=== PATIENT | female | born 1995 | race Caucasian/White ===

== ENCOUNTER → 2018-08-02 | Outpatient (CLI) | payer OTHER ==
--- NOTE | 2018-08-02 18:32 | Diagnostic Imaging Report ---
PROCEDURE: US OB SINGLE FETUS <14 WKS. TECHNIQUE: Multiple real-time grayscale images were obtained over the gravid uterus in various projections. INDICATION: age determination. dates. FINDINGS: Within the uterus is a gestational sac which contains a single embryo which is estimated at 10 weeks 0 days based on today's crown-rump length measurement. cardiac motion is appropriate at 158 beats per minute. Amniotic fluid volume appears appropriate. Yolk sac morphology is unremarkable. The maternal left ovary is unremarkable. The right is not evident but there are no findings of pelvic free fluid or evident adnexal mass. IMPRESSION: 1. Single live intrauterine gestation at 10 weeks 0 days gestational age based on today's crown-rump length measurements. There is appropriate cardiac motion and amniotic fluid volume. Estimated gestational age correlates to an estimated date of delivery of February 28, 2019. Dictated by: Dictated on workstation # [id number]
== END ==
LOC: RAD 14:27
PROVIDERS: ATTEND Family Medicine
DX: Z34.91 Encounter for supervision of normal pregnancy, unspecified, first trimester (principal); Z3A.10 10 weeks gestation of pregnancy
CPT/HCPCS: 76801

== ENCOUNTER 2018-08-30 16:52 | Emergency (ER) | payer OTHER ==
[~2018-08-30] VITALS: Ht 165.1 cm; Wt 63.5 kg
[2018-08-30 17:53] LABS: BASOPHILS % (AUTO) 0 % (0-10); EOSINOPHILS # (AUTO) 0.1 10^3/uL (0.0-0.3); EOSINOPHILS % (AUTO) 1 % (0-10); HEMATOCRIT 36 % (35-52); HEMOGLOBIN 12.5 G/DL (11.5-16.0); LYMPHOCYTES # (AUTO) 1.2 X 10^3 (1.0-4.0); LYMPHOCYTES % (AUTO) 13 % (12-44); MEAN CORPUSCULAR HEMOGLOBIN 30 PG (25-34); MEAN CORPUSCULAR HGB CONC 35 G/DL (32-36); MEAN CORPUSCULAR VOLUME 87 FL (80-99); MEAN PLATELET VOLUME 10.5 FL (7.4-10.4); MONOCYTES # (AUTO) 0.7 X 10^3 (0.0-1.0); MONOCYTES % (AUTO) 7 % (0-12); NEUTROPHILS # (AUTO) 7.2 X 10^3 (1.8-7.8); NEUTROPHILS % (AUTO) 79 % (42-75); PLATELET COUNT 186 10^3/uL (130-400); RED BLOOD COUNT 4.14 10^6/uL (4.35-5.85); RED CELL DISTRIBUTION WIDTH 13.7 % (10.0-14.5); WHITE BLOOD COUNT 9.1 10^3/uL (4.3-11.0)
[2018-08-30 17:57] LABS: BILIRUBIN,URINE NEGATIVE (NEGATIVE); CLARITY,URINE CLEAR; COLOR,URINE YELLOW; GLUCOSE, URINE (UA) NEGATIVE (NEGATIVE); KETONES,URINE NEGATIVE (NEGATIVE); LEUKOCYTE ESTERASE ,URINE 1+ (NEGATIVE); NITRITE,URINE NEGATIVE (NEGATIVE); PH,URINE 7 (5-9); PROTEIN,URINE NEGATIVE (NEGATIVE); UROBILINOGEN,URINE 1 MG/DL (NORMAL)
[2018-08-30 18:11] LABS: RBC,URINE 0-2 /HPF
[2018-08-30 18:12] LABS: ALANINE AMINOTRANSFERASE 12 U/L (0-55); ALBUMIN 3.7 GM/DL (3.2-4.5); ALKALINE PHOSPHATASE 81 U/L (40-136); BILIRUBIN,TOTAL 0.4 MG/DL (0.1-1.0); BUN/CREATININE RATIO 12; CALCIUM 8.8 MG/DL (8.5-10.1); CARBON DIOXIDE 21 MMOL/L (21-32); CHLORIDE 106 MMOL/L (98-107); CREATININE SERUM 0.66 MG/DL (0.60-1.30); GFR ESTIMATED > 60; GLUCOSE 86 MG/DL (70-105); POTASSIUM 3.6 MMOL/L (3.6-5.0); SODIUM 136 MMOL/L (135-145); TOTAL PROTEIN 6.6 GM/DL (6.4-8.2)
[2018-08-30] MEDS ORDERED: NS IV 1000 ML 1,000 ML IV SCH (18:15)
--- NOTE | 2018-08-30 18:18 | ED General ---
General Chief Complaint: General Problems/Pain Stated Complaint: CRAMPING,DIZZY,14 WKS Nursing Triage Note: PATIENT STATES THAT SHE HAS HAD CERDA, NAUSEA, AND LOWER ABD CRAMPING THAT STARTED TODAY. Nursing Sepsis Screen: No Definite Risk Source of Information: Patient Exam Limitations: No Limitations History of Present Illness Date Seen by Provider: Aug 30, 2018 Time Seen by Provider: 18:16 Initial Comments To ER with suprapubic and left-sided abdominal cramping, nausea, dizziness that began today around 3 PM. She is 14 weeks gestation and is concerned about the well-being of her fetus. Denies any vaginal bleeding. No bowel changes. She's had nausea but no vomiting. She has had an ultrasound at 10 weeks of gestation confirming an intrauterine . This was done here. Timing/Duration: 1-3 Hours Severity: Moderate Allergies and Home Medications Allergies Coded Allergies: No Known Drug Allergies (Unverified , 08/30/18) Patient Home Medication List Home Medication List Reviewed: Yes Review of Systems Review of Systems Constitutional: see HPI EENTM: see HPI Respiratory: no symptoms reported Cardiovascular: no symptoms reported Gastrointestinal: abdominal pain, nausea Genitourinary: no symptoms reported Musculoskeletal: see HPI Skin: no symptoms reported Psychiatric/Neurological: No Symptoms Reported Hematologic/Lymphatic: No Symptoms Reported Immunological/Allergic: no symptoms reported Past Cnaizjp-Uemulw-Irmejk Hx Patient Social History Alcohol Use: Denies Use Recreational Drug Use: No Smoking Status: Never a Smoker 2nd Hand Smoke Exposure: No Recent Foreign Travel: No Contact w/Someone Who Travel: No Recent Infectious Disease Expo: No Recent Hopitalizations: No Seasonal Allergies Seasonal Allergies: No Past Medical History Surgeries: No Respiratory: No Cardiac: No Neurological: No Genitourinary: No Gastrointestinal: No Musculoskeletal: Yes Scoliosis Endocrine: No HEENT: No Cancer: No Integumentary: No Physical Exam Vital Signs Vital Signs - First Documented 08/30/18 17:20 Temp 97.0 Pulse 67 Resp 18 B/P (MAP) 97/57 (70) Pulse Ox 100 Capillary Refill : Less Than 3 Seconds Height, Weight, BMI Height: 5'5.00" Weight: 140lbs. 0oz. [id number]; BMI Method:Stated General Appearance: No Apparent Distress, WD/WN Eyes: Bilateral Eye Normal Inspection, Bilateral Eye PERRL, Bilateral Eye EOMI HEENT: PERRL/EOMI, TMs Normal Respiratory: Lungs Clear, Normal Breath Sounds, No Accessory Muscle Use, No Respiratory Distress Cardiovascular: Regular Rate, Rhythm, Normal Peripheral Pulses Gastrointestinal: Normal Bowel Sounds, Soft, Other (Minimal tenderness left lower abdomen) Extremity: Normal Capillary Refill, Normal Inspection Neurologic/Psychiatric: Alert, Oriented x3, No Motor/Sensory Deficits Skin: Normal Color, Warm/Dry Progress/Results/Core Measures Suspected Sepsis Recent Fever Within 48 Hours: No Infection Criteria Present: None New/Unexplained Altered Menta: No Sepsis Screen: No Definite Risk SIRS Temperature:97.0 Pulse: 67 Respiratory Rate: 18 Laboratory Tests 08/30/18 17:47: White Blood Count 9.1 Blood Pressure 97 /57 Mean: 70 Laboratory Tests 08/30/18 17:47: Creatinine 0.66, Platelet Count 186, Total Bilirubin 0.4 Results/Orders Lab Results Laboratory Tests Test 08/30/18 17:42 08/30/18 17:47 Range/Units Urine Color YELLOW Urine Clarity CLEAR Urine pH 7 5-9 Urine Specific [place] 1.015 L 1.016-1.022 Urine Protein NEGATIVE NEGATIVE Urine Glucose (UA) NEGATIVE NEGATIVE Urine Ketones NEGATIVE NEGATIVE Urine Nitrite NEGATIVE NEGATIVE Urine Bilirubin NEGATIVE NEGATIVE Urine Urobilinogen 1 NORMAL MG/DL Urine Leukocyte Esterase 1+ H NEGATIVE Urine RBC (Auto) 1+ H NEGATIVE Urine RBC 0-2 /HPF Urine WBC 2-5 /HPF Urine Squamous Epithelial Cells 5-10 /HPF Urine Crystals NONE /LPF Urine Bacteria NONE /HPF Urine Casts NONE /LPF Urine Mucus SMALL H /LPF Urine Culture Indicated NO White Blood Count 9.1 4.3-11.0 10^3/uL Red Blood Count 4.14 L 4.35-5.85 10^6/uL Hemoglobin 12.5 11.5-16.0 G/DL Hematocrit 36 35-52 % Mean Corpuscular Volume 87 80-99 FL Mean Corpuscular Hemoglobin 30 25-34 PG Mean Corpuscular Hemoglobin Concent 35 32-36 G/DL Red Cell Distribution Width 13.7 10.0-14.5 % Platelet Count 186 130-400 10^3/uL Mean Platelet Volume 10.5 H 7.4-10.4 FL Neutrophils (%) (Auto) 79 H 42-75 % Lymphocytes (%) (Auto) 13 12-44 % Monocytes (%) (Auto) 7 0-12 % Eosinophils (%) (Auto) 1 0-10 % Basophils (%) (Auto) 0 0-10 % Neutrophils # (Auto) 7.2 1.8-7.8 X 10^3 Lymphocytes # (Auto) 1.2 1.0-4.0 X 10^3 Monocytes # (Auto) 0.7 0.0-1.0 X 10^3 Eosinophils # (Auto) 0.1 0.0-0.3 10^3/uL Basophils # (Auto) 0.0 0.0-0.1 10^3/uL Sodium Level 136 135-145 MMOL/L Potassium Level 3.6 3.6-5.0 MMOL/L Chloride Level 106 98-107 MMOL/L Carbon Dioxide Level 21 21-32 MMOL/L Anion Gap 9 5-14 MMOL/L Blood Urea Nitrogen 8 7-18 MG/DL Creatinine 0.66 0.60-1.30 MG/DL Estimat Glomerular Filtration Rate > 60 BUN/Creatinine Ratio 12 Glucose Level 86 70-105 MG/DL Calcium Level 8.8 8.5-10.1 MG/DL Corrected Calcium 9.0 8.5-10.1 MG/DL Total Bilirubin 0.4 0.1-1.0 MG/DL Aspartate Amino Transf (AST/SGOT) 13 5-34 U/L Alanine Aminotransferase (ALT/SGPT) 12 0-55 U/L Alkaline Phosphatase 81 40-136 U/L Total Protein 6.6 6.4-8.2 GM/DL Albumin 3.7 3.2-4.5 GM/DL My Orders Orders - OZZIE PERES APRN Cbc With Automated Diff (08/30/18 17:28) Comprehensive Metabolic Panel (08/30/18 17:28) Ua Culture If Indicated (08/30/18 17:28) Iv [place]-Insert (Order) (08/30/18 17:28) Ns Iv 1000 Ml (Sodium Chloride 0.9%) (08/30/18 18:15) Heart Tones (08/30/18 18:18) Vital Signs/I&O 08/30/18 17:20 Temp 97.0 Pulse 67 Resp 18 B/P (MAP) 97/57 (70) Pulse Ox 100 Capillary Refill : Less Than 3 Seconds Blood Pressure Mean: 70 Departure Impression Primary Impression: Abdominal cramping affecting Disposition: 01 HOME, SELF-CARE Condition: Stable Departure-Patient Inst. Decision time for Depature: 18:54 Referrals: ADRIANNA CUELLO MD (PCP/Family) Primary Care Physician Patient Instructions: Activity During , - The Fourth Month Add. Discharge Instructions: 1. Return to ER for any concerns 2. Follow up with your doctor next week for recheck All discharge instructions reviewed with patient and/or family. Voiced understanding. OZZIE PERES SENIOR DATA WAREHOUSE ARCHITECT Aug 30, 2018 18:18
[2018-08-30 19:12] VITALS: BP 97/57
== END 2018-08-30 19:12 | disposition home or self-care (01) ==
LOC: EDUNIT# 16:52 → ER 16:54
DX: O26.892 Other specified pregnancy related conditions, second trimester (principal); R10.32 Left lower quadrant pain; Z3A.14 14 weeks gestation of pregnancy
CPT/HCPCS: 36415; 80053; 81000; 85025; 96360

== ENCOUNTER 2018-09-03 07:23 | Emergency (ER) | payer OTHER ==
[~2018-09-03] VITALS: Ht 165.1 cm; Wt 64.4 kg
[2018-09-03] MEDS ORDERED: LACTATED RINGERS 1,000 ML IV ONE (07:35)
--- NOTE | 2018-09-03 07:39 | ED GI ---
General Chief Complaint: Abdominal/GI Problems Stated Complaint: POSS DEHYDRATED,14 WEEKS Source of Information: Patient Exam Limitations: No Limitations History of Present Illness Date Seen by Provider: Sep 03, 2018 Time Seen by Provider: 07:27 Initial Comments Patient presents to ER by private conveyance with chief complaint of nausea vomiting and feeling dehydrated since 9:00 last night. Her rmqdey-rz-ysm's been sick with something similar although not as bad. She says she's been trying to sip water and using the Phenergan provided by Dr. Cuello but she just vomits it right back up. She is having mild abdominal discomfort after the vomiting. No fevers but she's had some chills. No rash. No painful urination. Allergies and Home Medications Allergies Coded Allergies: No Known Drug Allergies (Unverified , 08/30/18) Home Medications Ondansetron 4 Mg Tab.rapdis, 4 MG PO Q6H PRN for NAUSEA/VOMITING-2ND LINE Prescribed by: JESSICA CLARK on 09/03/18 [id number] Patient Home Medication List Home Medication List Reviewed: Yes Review of Systems Review of Systems Constitutional: No chills, No diaphoresis EENTM: No Blurred Vision, No Double Vision Respiratory: Denies Cough, Denies Shortness of Air Cardiovascular: Denies Chest Pain, Denies Edema Gastrointestinal: See HPI; Denies Abdomen Distended; Abdominal Pain; Denies Diarrhea; Nausea, Poor Fluid Intake, Vomiting Genitourinary: Denies Discharge, Denies Drainage Past Mqpqcki-Bpbgsv-Ajsmyf Hx Patient Social History Alcohol Use: Denies Use 2nd Hand Smoke Exposure: No Recent Foreign Travel: No Contact w/Someone Who Travel: No Recent Hopitalizations: No Seasonal Allergies Seasonal Allergies: No Past Medical History Surgeries: No Respiratory: No Cardiac: No Neurological: No Genitourinary: No Gastrointestinal: No Musculoskeletal: Yes Scoliosis Endocrine: No HEENT: No Cancer: No Integumentary: No Physical Exam Vital Signs Vital Signs - First Documented 09/03/18 07:30 Temp 98.0 Pulse 85 Resp 16 B/P (MAP) 103/67 (79) Pulse Ox 98 O2 Delivery Room Air Capillary Refill : Height/Weight/BMI Height: 5'5.00" Weight: 140lbs. 0oz. 63.501991pd; BMI Method:Stated General Appearance: WD/WN, no apparent distress HEENT: PERRL/EOMI, pharynx normal Neck: non-tender, full range of motion, normal inspection Respiratory: no respiratory distress, no accessory muscle use Cardiovascular: normal peripheral pulses, regular rate, rhythm Gastrointestinal: normal bowel sounds, soft, tenderness (mild, diffuse mostly epigastric) Neurologic/Psychiatric: alert, oriented x 3 Skin: normal color, warm/dry Progress/Results/Core Measures Results/Orders My Orders Orders - JESSICA CLARK Saline Lock/Iv-Start (09/03/18 07:35) Lactated Ringers (Lr 1000 Ml Iv Solution (09/03/18 07:35) Ondansetron Injection (Zofran Injectio (09/03/18 07:45) Medications Given in ED Current Medications Medications Dose Ordered Sig/Brina Route Start Time Stop Time Status Last Admin Dose Admin Lactated Ringer's 1,000 ml @ 0 mls/hr Q0M ONCE IV 09/03/18 07:35 09/03/18 07:36 DC 09/03/18 07:49 1,000 MLS/HR Ondansetron HCl 4 mg ONCE ONCE IVP 09/03/18 07:45 09/03/18 07:46 DC 09/03/18 07:49 4 MG Vital Signs/I&O 09/03/18 07:30 Temp 98.0 Pulse 85 Resp 16 B/P (MAP) 103/67 (79) Pulse Ox 98 O2 Delivery Room Air Progress Progress Note #1: Time: 07:38 Progress Note Aseptic vital signs mildly dry in appearance. Most likely viral gastroenteritis and will respond some Zofran and fluids. Progress Note #2: Time: 08:22 Progress Note Patient's feeling better nausea is gone and the heart tones are 160. Departure Impression Primary Impression: Gastroenteritis Additional Impression: and not yet delivered in second trimester Disposition: 01 HOME, SELF-CARE Condition: Improved Departure-Patient Inst. Decision time for Depature: 08:23 Referrals: ADRIANNA CUELLO MD (PCP/Family) Primary Care Physician Patient Instructions: [id number] Add. Discharge Instructions: Be proactive with your promethazine. Drink plenty of fluids. Half-strength sports drinks, broth and Pedialyte. Use Tylenol for the body aches and get some rest. 1 tablet of Zofran under the tongue over 6 hours as needed for nausea. All discharge instructions reviewed with patient and/or family. Voiced understanding. Scripts Ondansetron (Ondansetron Odt) 4 Mg Tab.rapdis 4 MG PO Q6H PRN for NAUSEA/VOMITING-2ND LINE, #8 TAB 0 Refills Prov: JESSICA CLARK 09/03/18 JESSICA CLARK Sep 03, 2018 07:39
[2018-09-03] MEDS ORDERED: ONDANSETRON 4 MG/2 ML (SDV) Z0FRAN IVP ONE (07:45)
[2018-09-03] MEDS ORDERED: ONDA4TAB11 PO (07:56)
[2018-09-03 08:30] VITALS: BP 100/50
== END 2018-09-03 08:30 | disposition home or self-care (01) ==
LOC: EDUNIT# 07:23 → ER 07:25
DX: O99.612 Diseases of the digestive system complicating pregnancy, second trimester (principal); K52.9 Noninfective gastroenteritis and colitis, unspecified; Z3A.14 14 weeks gestation of pregnancy
CPT/HCPCS: 96361; 96374

== ENCOUNTER → 2018-09-25 | Outpatient (CLI) | payer OTHER ==
[~2018-09-25] MED LIST: ONDA4TAB11 PO
--- NOTE | 2018-09-25 13:22 | Diagnostic Imaging Report ---
INDICATION: survey. TECHNIQUE: Multiple real-time grayscale images were obtained over the gravid uterus. COMPARISON: 08/02/2018. FINDINGS: The previous OB ultrasound exam of 08/02/2018 noted a single live intrauterine of approximately 10 weeks gestation. On this study, the fetus is again identified. The fetus is cephalic in presentation. heart motion was noted and a rate of 152 BPM was recorded. There were no abnormalities identified but the four-chamber heart view and the images of the spine were less than optimal. I would recommend that a short-term (4-6 week) followup exam be performed for further study. The placenta is posterior and there is no previa. The amniotic fluid volume is within normal limits. The growth parameters are fairly uniform and have progressed as expected since the prior study. Biometrical measurements are as follows: Biparietal 4.01 cm, age 18 weeks 2 days. Head circumference 14.89 cm, age 18 weeks 0 days. Abdominal circumference 11.21 cm, age 17 weeks 1 days. Femur length 2.42 cm, age 17 weeks 3 days. Sonographic estimate age: 17 weeks 5 days. Sonographic estimated date of delivery: 02/28/2019. Estimated Weight: 188 gm (+/- 27 gm). LMP percentile: 20%. heart rate: 152 beats per minute. number: 1 of 1. IMPRESSION: 1. There is a single live fetus at approximately 17 weeks 5 days gestation +/-1 week. The EDC remains February 28, 2019. 2. There were no abnormalities identified but the four-chamber heart view and the images of the spine were less than optimal. Recommendations, as above. 3. The growth parameters have progressed as expected since the prior exam. Dictated by: Dictated on workstation # [id number]
== END ==
LOC: RAD 10:41
PROVIDERS: ATTEND Family Medicine
DX: Z36.89 Encounter for other specified antenatal screening (principal); Z3A.17 17 weeks gestation of pregnancy
CPT/HCPCS: 76805

== ENCOUNTER → 2018-12-19 | Outpatient (CLI) | payer OTHER ==
--- NOTE | 2018-12-19 12:11 | Diagnostic Imaging Report ---
INDICATION: Followup anatomy. TECHNIQUE: Multiple Real-time grayscale images were obtained over the gravid uterus. COMPARISON: 09/25/2018 and 08/02/2018. FINDINGS: The previous OB ultrasound exam performed on 09/25/2018 noted a single live fetus of approximately 17 weeks 5 days gestation. There were no abnormalities identified but the four-chamber heart and spine were not optimally visualized. On this study, the fetus is again identified. The fetus is cephalic in presentation. heart motion was noted and a rate of 136 BPM was recorded. There are no abnormalities identified. In particular, the spine and four-chamber heart view are within normal limits. The amniotic fluid index is 17.9 (normal 8-22 cm). The placenta is fundal and there is no previa. The growth parameters were not obtained for this study. The cervix was not well imaged either. IMPRESSION: 1. There is a single live fetus in cephalic presentation. 2. There are no abnormalities identified. In particular, the spine and four-chamber heart view are within normal limits. 3. The growth parameters were not obtained for this study. Dictated by: Dictated on workstation # [id number]
== END ==
LOC: RAD 10:04
PROVIDERS: ATTEND Family Medicine
DX: Z34.83 Encounter for supervision of other normal pregnancy, third trimester (principal); Z3A.30 30 weeks gestation of pregnancy
CPT/HCPCS: 76816

== ENCOUNTER 2019-02-22 04:20 | Inpatient (IN) | payer OTHER ==
[2019-02-22] VITALS (39 sets, daily range): BP systolic 107–145; BP diastolic 0–80
[~2019-02-22] VITALS: Ht 165.1 cm; Wt 76.7 kg
--- OUTSIDE RECORDS SUMMARY | 2019-02-22 05:51 | XMS REPORT | Continuity of Care Document ---
Author Organization Unknown Address Unknown Allergies Active Description Code Type Severity Reaction Onset Reported/Identified Relationship to Patient Clinical Status Yes No Known Drug Allergies [id number] Drug Allergy Unknown N/A 08/30/2018 Medications There is no data. Problems Date Dx Coded Attending Type Code Diagnosis Diagnosed By 08/03/2018 ADRIANNA CUELLO MD, Ot Z34.91 ENCNTR FOR SUPRVSN OF NORMAL PREG, UNSP, 08/03/2018 ADRIANNA CUELLO MD, Ot Z3A.10 10 WEEKS GESTATION OF 08/30/2018 ADRIANNA CUELLO MD, Ot Z34.91 ENCNTR FOR SUPRVSN OF NORMAL PREG, UNSP, 08/30/2018 ADRIANNA CUELLO MD, Ot Z3A.10 10 WEEKS GESTATION OF 09/01/2018 OZZIE PERES APRN Ot O26.892 OTH RELATED CONDITIONS, SECOND 09/01/2018 OZZIE PERES APRN Ot R10.32 LEFT LOWER QUADRANT PAIN 09/01/2018 OZZIE PERES APRN Ot Z3A.14 14 WEEKS GESTATION OF 09/05/2018 JESSICA CLARK MD Ot K52.9 NONINFECTIVE GASTROENTERITIS AND COLITIS 09/05/2018 JESSICA CLARK MD Ot O20.9 HEMORRHAGE IN EARLY , UNSPECIFI 09/05/2018 JESSICA CLARK MD Ot O99.612 DISEASES OF THE DGSTV SYS COMP 09/05/2018 JESSICA CLARK MD Ot Z3A.14 14 WEEKS GESTATION OF 09/26/2018 ADRIANNA CUELLO MD, Ot Z36.89 ENCOUNTER FOR OTHER SPECIFIED 09/26/2018 ADRIANNA CUELLO MD, Ot Z3A.17 17 WEEKS GESTATION OF 12/20/2018 ADRIANNA CUELLO MD, Ot Z34.83 ENCOUNTER FOR SUPRVSN OF NORMAL PREGNANC 12/20/2018 ADRIANNA CUELLO MD, Ot Z3A.30 30 WEEKS GESTATION OF 02/22/2019 ADRIANNA CUELLO MD, Ot Z34.83 ENCOUNTER FOR SUPRVSN OF NORMAL PREGNANC 02/22/2019 ADRIANNA CUELLO MD, Ot Z3A.30 30 WEEKS GESTATION OF Procedures There is no data. Results Test Result Range Complete urinalysis with reflex to culture - 08/30/18 17:42 Urine color determination YELLOW NRG Urine clarity determination CLEAR NRG Urine pH measurement by test strip 7 5-9 Specific gravity of urine by test strip 1.015 1.016-1.022 Urine protein assay by test strip, semi-quantitative NEGATIVE NEGATIVE Urine glucose detection by automated test strip NEGATIVE NEGATIVE Erythrocytes detection in urine sediment by light microscopy 1+ NEGATIVE Urine ketones detection by automated test strip NEGATIVE NEGATIVE Urine nitrite detection by test strip NEGATIVE NEGATIVE Urine total bilirubin detection by test strip NEGATIVE NEGATIVE Urine urobilinogen measurement by automated test strip (mass/volume) 1 mg/dL NORMAL Urine leukocyte esterase detection by dipstick 1+ NEGATIVE Automated urine sediment erythrocyte count by microscopy (number/high power field) [HPF] NRG Automated urine sediment leukocyte count by microscopy (number/high power field) [HPF] NRG Bacteria detection in urine sediment by light microscopy NONE NRG Squamous epithelial cells detection in urine sediment by light microscopy 5-10 NRG Crystals detection in urine sediment by light microscopy NONE NRG Casts detection in urine sediment by light microscopy NONE NRG Mucus detection in urine sediment by light microscopy SMALL NRG Complete urinalysis with reflex to culture NO NRG Complete blood count (CBC) with automated white blood cell (WBC) differential - 08/30/18 17:47 Blood leukocytes automated count (number/volume) 9.1 10*3/uL 4.3-11.0 Blood erythrocytes automated count (number/volume) 4.14 10*6/uL 4.35-5.85 Venous blood hemoglobin measurement (mass/volume) 12.5 g/dL 11.5-16.0 Blood hematocrit (volume fraction) 36 % 35-52 Automated erythrocyte mean corpuscular volume 87 [foz_us] 80-99 Automated erythrocyte mean corpuscular hemoglobin (mass per erythrocyte) 30 pg 25-34 Automated erythrocyte mean corpuscular hemoglobin concentration measurement (mass/volume) 35 g/dL 32-36 Automated erythrocyte distribution width ratio 13.7 % 10.0- 14.5 Automated blood platelet count (count/volume) 186 10*3/uL 130-400 Automated blood platelet mean volume measurement 10.5 [foz_us] 7.4-10.4 Automated blood neutrophils/100 leukocytes 79 % 42-75 Automated blood lymphocytes/100 leukocytes 13 % 12-44 Blood monocytes/100 leukocytes 7 % 0-12 Automated blood eosinophils/100 leukocytes 1 % 0-10 Automated blood basophils/100 leukocytes 0 % 0-10 Blood neutrophils automated count (number/volume) 7.2 10*3 1.8-7.8 Blood lymphocytes automated count (number/volume) 1.2 10*3 1.0-4.0 Blood monocytes automated count (number/volume) 0.7 10*3 0.0- 1.0 Automated eosinophil count 0.1 10*3/uL 0.0-0.3 Automated blood basophil count (count/volume) 0.0 10*3/uL 0.0-0.1 Comprehensive metabolic panel - 08/30/18 17:47 Serum or plasma sodium measurement (moles/volume) 136 mmol/L 135-145 Serum or plasma potassium measurement (moles/volume) 3.6 mmol/L 3.6-5.0 Serum or plasma chloride measurement (moles/volume) 106 mmol/L 98-107 Carbon dioxide 21 mmol/L 21-32 Serum or plasma anion gap determination (moles/volume) 9 mmol/L 5-14 Serum or plasma urea nitrogen measurement (mass/volume) 8 mg/dL 7-18 Serum or plasma creatinine measurement (mass/volume) 0.66 mg/dL 0.60-1.30 Serum or plasma urea nitrogen/creatinine mass ratio 12 NRG Serum or plasma creatinine measurement with calculation of estimated glomerular filtration rate > NRG Serum or plasma glucose measurement (mass/volume) 86 mg/dL 70-105 Serum or plasma calcium measurement (mass/volume) 8.8 mg/dL 8.5-10.1 Serum or plasma total bilirubin measurement (mass/volume) 0.4 mg/dL 0.1-1.0 Serum or plasma alkaline phosphatase measurement (enzymatic activity/volume) 81 U/L 40-136 Serum or plasma aspartate aminotransferase measurement (enzymatic activity/volume) 13 U/L 5-34 Serum or plasma alanine aminotransferase measurement (enzymatic activity/volume) 12 U/L 0-55 Serum or plasma protein measurement (mass/volume) 6.6 g/dL 6.4-8.2 Serum or plasma albumin measurement (mass/volume) 3.7 g/dL 3.2-4.5 CALCIUM CORRECTED 9.0 mg/dL 8.5-10.1 Encounters ACCT No. Visit Date/Time Discharge Status Pt. Type Provider Facility Loc./Unit Complaint [id number] 12/19/2018 10:04:00 12/19/2018 23:59:59 CLS Outpatient ADRIANNA CUELLO MD [facility] RAD SPINE/HEART NOT WELL F/U [id number] 09/25/2018 10:41:00 09/25/2018 23:59:59 CLS Outpatient ADRIANNA CUELLO MD [facility] RAD SURVEY [id number] 09/03/2018 07:25:00 09/03/2018 08:30:00 DIS Outpatient JESSICA CLARK MD [facility] ER POSS DEHYDRATED,14 WEEKS [id number] 08/30/2018 16:54:00 08/30/2018 19:12:00 DIS Outpatient OZZIE PERES APRN [facility] ER CRAMPING,DIZZY,14 WKS [id number] 08/02/2018 14:27:00 08/02/2018 23:59:59 CLS Outpatient ADRIANNA CUELLO MD [facility] RAD DATES [id number] 02/22/2019 05:46:00 ACT Inpatient ADRIANNA CUELLO MD [facility] LDRP INDUCTION
--- NOTE | 2019-02-22 05:57 | NUR ---
SIMONA WINTER presented to unit via ambulation from home, accompanied by SO ,for INDUCTION. SIMONA WINTER weighed, gowned, voided, and to bed. EFHM and TOCO applied, VS taken. SIMONA WINTER oriented to bed controls, call light, TV, heat, and A/C controls.
[2019-02-22] MEDS ORDERED: PREN-53 PO (06:02)
[2019-02-22] MEDS ORDERED: D5 LR IV SOLUTION 1,000 ML IV SCH (06:11)
[2019-02-22 06:18] LABS: BILIRUBIN,URINE NEGATIVE (NEGATIVE); CLARITY,URINE CLEAR; GLUCOSE, URINE (UA) NEGATIVE (NEGATIVE); KETONES,URINE NEGATIVE (NEGATIVE); LEUKOCYTE ESTERASE ,URINE 3+ (NEGATIVE); NITRITE,URINE NEGATIVE (NEGATIVE); PH,URINE 6 (5-9); PROTEIN,URINE 1+ (NEGATIVE); UROBILINOGEN,URINE 1 MG/DL (NORMAL)
[2019-02-22 06:24] LABS: BACTERIA,URINE FEW /HPF; COLOR,URINE YELLOW
[2019-02-22 07:06] LABS: BASOPHILS % (AUTO) 0 % (0-10); EOSINOPHILS # (AUTO) 0.1 10^3/uL (0.0-0.3); EOSINOPHILS % (AUTO) 1 % (0-10); HEMATOCRIT 34 % (35-52); HEMOGLOBIN 11.1 G/DL (11.5-16.0); LYMPHOCYTES # (AUTO) 1.7 X 10^3 (1.0-4.0); LYMPHOCYTES % (AUTO) 18 % (12-44); MEAN CORPUSCULAR HEMOGLOBIN 29 PG (25-34); MEAN CORPUSCULAR HGB CONC 33 G/DL (32-36); MEAN CORPUSCULAR VOLUME 87 FL (80-99); MEAN PLATELET VOLUME 11.8 FL (7.4-10.4); MONOCYTES # (AUTO) 0.7 X 10^3 (0.0-1.0); MONOCYTES % (AUTO) 7 % (0-12); NEUTROPHILS # (AUTO) 6.7 X 10^3 (1.8-7.8); NEUTROPHILS % (AUTO) 73 % (42-75); PLATELET COUNT 176 10^3/uL (130-400); RED CELL DISTRIBUTION WIDTH 13.4 % (10.0-14.5); WHITE BLOOD COUNT 9.2 10^3/uL (4.3-11.0)
--- NOTE | 2019-02-22 07:18 | History & Physical-OB ---
OB - Chief Complaint & HPI Date/Time Date of Admission: Date of Admission: Feb 22, 2019 at 05:46 Date seen by a Provider: Feb 22, 2019 Time Seen by a Provider: 07:05 Chief Complaint/History OB-Reason for Admission/Chief: Induction of Labor Hx : 2 Hx Para: 1 Expected Date of Delivery: Feb 28, 2019 Gestational Age in Weeks: 39 Gestational Age in Days: 1 Admission Nurse Assessment Rev: Yes History of Labs GBS negative Allergies and Home Medications Allergies Coded Allergies: No Known Drug Allergies (Unverified , 02/22/19) Home Medications Ondansetron 4 Mg Tab.rapdis, 4 MG PO Q6H PRN for NAUSEA/VOMITING-2ND LINE Prescribed by: JESSICA CLARK on 09/03/18 0756 [id number]/Iron Fumarate/FA/Dss 1 Each Tablet, 1 EACH PO DAILY, (Reported) Patient Home Medication List Home Medication List Reviewed: Yes OB - History Hx of Present Care: Yes Ultrasounds: Normal mid trimester US Obstetrical Complications: None Medical Complications: None Patient Past Medical History no chronic medical problems Social History/Family History 2nd Hand Smoke Exposure: No OB - Admission Exam Physical Exam HEENT: Moist Membranes Heart: Rhythm Normal Lungs: Clear Abdomen: Gravid Extremities: Normal Cervical Dilatation: 2cm Effacement: 50% Station: -3 Membranes: Intact Amniotic Fluid: Clear Heart Rate: 140's Accelerations: Accelerations Present Decelerations: No Decelerations Short Term Variability: Present Campaign Assistant Variability: Average (6-25) Contractions on Admission: >10 Minutes Apart Intensity: Mild Roman Scoring Tool (Modified) Dilation (cm): 1-2cm (1) Effacement (%): 31-51% (1) Descent/Station: -3 (0) Cervix Consistency: Medium(1) Cervix Position: Middle/Mid-Position (1) Add 1 point for: Each previous vaginal delivery (1) Roman Score: 5 Labs Laboratory Tests Test 02/22/19 06:05 02/22/19 06:50 Range/Units Urine Color YELLOW Urine Clarity CLEAR Urine pH 6 5-9 Urine Specific [place] 1.015 L 1.016-1.022 Urine Protein 1+ H NEGATIVE Urine Glucose (UA) NEGATIVE NEGATIVE Urine Ketones NEGATIVE NEGATIVE Urine Nitrite NEGATIVE NEGATIVE Urine Bilirubin NEGATIVE NEGATIVE Urine Urobilinogen 1 NORMAL MG/DL Urine Leukocyte Esterase 3+ H NEGATIVE Urine RBC (Auto) NEGATIVE NEGATIVE Urine RBC NONE /HPF Urine WBC 5-10 H /HPF Urine Squamous Epithelial Cells 10-25 H /HPF Urine Crystals NONE /LPF Urine Bacteria FEW H /HPF Urine Casts NONE /LPF Urine Mucus MODERATE H /LPF Urine Culture Indicated YES White Blood Count 9.2 4.3-11.0 10^3/uL Red Blood Count 3.87 L 4.35-5.85 10^6/uL Hemoglobin 11.1 L 11.5-16.0 G/DL Hematocrit 34 L 35-52 % Mean Corpuscular Volume 87 80-99 FL Mean Corpuscular Hemoglobin 29 25-34 PG Mean Corpuscular Hemoglobin Concent 33 32-36 G/DL Red Cell Distribution Width 13.4 10.0-14.5 % Platelet Count 176 130-400 10^3/uL Mean Platelet Volume 11.8 H 7.4-10.4 FL Neutrophils (%) (Auto) 73 42-75 % Lymphocytes (%) (Auto) 18 12-44 % Monocytes (%) (Auto) 7 0-12 % Eosinophils (%) (Auto) 1 0-10 % Basophils (%) (Auto) 0 0-10 % Neutrophils # (Auto) 6.7 1.8-7.8 X 10^3 Lymphocytes # (Auto) 1.7 1.0-4.0 X 10^3 Monocytes # (Auto) 0.7 0.0-1.0 X 10^3 Eosinophils # (Auto) 0.1 0.0-0.3 10^3/uL Basophils # (Auto) 0.0 0.0-0.1 10^3/uL OB - Assessment/Plan/Diagnosis Assessment Assessment: induction of labor Admission Dx 1. IUP at 39w1d Admission Status: Inpatient Order (span 2 midnights) Reason for Inpatient Admission: induction of labor Plan Plan: Induction Induction Method: AROM Other Plan -pitocin as needed -epidural desired ADRIANNA CUELLO MD Feb 22, 2019 07:18
[2019-02-22] MEDS ORDERED: OXYTOCIN/NORMAL SALINE 500 ML IV SCH ×2 (07:19→13:16)
[2019-02-22] MEDS ORDERED: SUFENTA 0.6MCG/ML BUPIVA 0.125 100 ML ONE (08:23)
--- NOTE | 2019-02-22 08:29 | NUR ---
called into pt's room. requesting epidural placement. LR bolus 1 liter infusing via gravity prior to placement.
--- NOTE | 2019-02-22 08:47 | NUR ---
DANIEL Lopez here for epidural placement. Procedure explained, consent reviewed and signed by anesthesia. Questions answered to patient's satisfaction. Time out taken to verify correct patient/procedure. 0852- Patient up to side of bed, assisted into sitting position. Betadine prep done x3 and sterile drape applied. 0859- Local done, see anesthesia record. 0901-Test dose given, see anesthesia record for drug and dosage. Epidural catheter secured in place. Epidural placement complete. 0907- Assisted back into bed, monitors adjusted. Epidural dosed, see anesthesia record. 0910-Epidural of Sufenta/Bupvicaine @12cc/hr stated per pump. Patient tolerated procedure well.
[2019-02-22] MEDS ORDERED: LACTATED RINGERS 1,000 ML IV SCH (09:12)
[2019-02-22] MEDS ORDERED: EPIDURAL (SUFENTA 0.6MCG/ML BUPIVA 0.125%) 100 ML BAG EPI SCH (09:15)
[2019-02-22] MEDS ORDERED: ONDANSETRON 4 MG/2 ML (SDV) Z0FRAN IV PRN (09:15)
[2019-02-22] MEDS ORDERED: METOCLOPRAMIDE INJ 10 MG/2 ML (REGLAN) IV PRN (09:15)
[2019-02-22] MEDS ORDERED: NALOXONE 0.4 MG/ML 1 ML (NARCAN) VIAL IV PRN ×2 (09:15)
[2019-02-22] MEDS ORDERED: diphenhydrAMINE 50 MG/ML INJ (BENADRYL) IV PRN (09:15)
--- NOTE | 2019-02-22 09:41 | NUR ---
was called. update given on SVE and meconium stained fluid. no new orders received @ time.
--- NOTE | 2019-02-22 13:23 | OB Labor & Delivery Record ---
L&D History Date of Service Date of Service: Feb 22, 2019 History Expected Date of Delivery: Feb 28, 2019 Gestational Age in Weeks: 39 Hx : 2 Hx Para: 1 Complications Events: Routine care Operative Indications (Cesarea: N/A-Vaginal Delivery Intrapartal Events: None Other Complications GBS negative L&D Stage1 Stage One Onset of Labor - Date: Feb 22, 2019 Onset of Labor - Time: 07:05 Monitors and Tracing Monitor Mode: Internal Heart Rate: 130 Monitor Accelerations: Uniform Monitor Decelerations: Variable Station: -1 Mechanical Equipment Test Engineer Variability: Average (6-10) Short Term Variability: Present Presentation: Vertex Vital Signs VS - Last 72 Hours, by Label 02/22/19 02/22/19 02/22/19 02/22/19 07:15 07:30 07:45 08:00 Temp 97.5 Pulse 53 59 53 51 Resp 18 18 18 18 B/P (MAP) 121/72 (88) 117/64 (81) 110/60 (77) 119/68 (85) O2 Delivery Room Air Room Air Room Air Room Air 02/22/19 02/22/19 02/22/19 02/22/19 08:15 08:30 08:45 08:50 Pulse 53 57 63 Resp 18 18 18 18 B/P (MAP) 120/80 (93) 126/63 (84) 130/71 (90) Pulse Ox 100 O2 Delivery Room Air Room Air Room Air Room Air 02/22/19 02/22/19 02/22/19 02/22/19 09:00 09:05 09:10 09:15 Pulse 85 73 59 61 Resp 18 18 18 18 B/P (MAP) 137/71 (93) 130/58 (82) 125/66 (85) 115/59 (77) Pulse Ox 100 100 100 100 O2 Delivery Room Air Room Air Room Air Room Air 02/22/19 02/22/19 02/22/19 02/22/19 09:20 09:25 09:30 09:45 Pulse 62 57 57 56 Resp 18 18 18 18 B/P (MAP) 112/56 (74) 114/58 (76) 112/64 (80) 112/60 (77) Pulse Ox 98 100 100 100 O2 Delivery Room Air Room Air Room Air Room Air 6/02/22/19 02/22/19 02/22/19 10:00 10:15 10:30 10:45 Pulse 58 51 47 46 Resp 18 18 18 18 B/P (MAP) 113/68 (83) 107/57 (74) 108/56 (73) 109/57 (74) Pulse Ox 100 99 98 98 O2 Delivery Room Air Room Air Room Air Room Air 02/22/19 02/22/19 02/22/19 02/22/19 11:00 11:15 11:30 11:40 Temp 96.9 Pulse 46 49 47 Resp 18 18 18 B/P (MAP) 109/57 (74) 107/60 (76) 110/60 (77) Pulse Ox 98 100 99 O2 Delivery Room Air Room Air Room Air 02/22/19 02/22/19 11:45 12:00 Pulse 46 48 Resp 18 18 B/P (MAP) 110/64 (79) 112/64 (80) Pulse Ox 99 100 O2 Delivery Room Air Room Air Signs of Distress by FHT Signs of Distress no Rupture of Membranes Spontaneous Ruture of Membrane: No Amniotic Membrane Rupture Time: 0707 Amniotic Membrane Fluid Desc.: Clear (at time of rupture, minimal fluid at that time) Vaginal Bleeding Description: None Induction/Anesthesia Epidural Cath Placement - Time: 0900 L&D Stage2 Stage Two Stage II Date: Feb 22, 2019 Stage II Time: 12:44 Monitors and Tracing Monitor Mode: Internal Heart Rate: 130 Monitor Accelerations: Uniform Care Home Variability: Average (6-10) Short Term Variability: Present Position: Left Occiput Anterior Presentation: Vertex Signs of Distress by FHT Signs of Distress no. Cord Descript/Complications Cord Vessel Description: 3 Vessels Delivery Type Delivery Method: Spontaneous Vaginal Anterior Shoulder: Left Episiotomy/Perineal Laceration Laceraction(s)/Extensions: Yes Episiotomy Description: 1st degree (to left) Sutures Used: Vicryl Condition of Infant Delivery 1 minute Comment: 9 5 minute Comment: 9 Condition of Condition of Infant: Living Exam: No Observed Abnormalities Resuscitation Resuscitation: N/A - Spontaneous Resp Resuscitation Comments: Suctioning of mouth and nose before first breath due to meconium L&D Stage3 Stage Three Stage III Date: Feb 22, 2019 Stage III Time: 12:48 Pictocin Pitocin Administration mu/min: 16 Pitocin ml/hr: 16 Pitocin Administration Comment: pitocin increased Placenta Delivery Placenta Delivery: Spontaneous Delivery Summary Summary Estimated blood loss (mL): 150 Condition of Delivery Examined: Cervix Examined Post Hemorrhage: No Intervention Required none ADRIANNA CUELLO MD Feb 22, 2019 13:23
[2019-02-22] MEDS ORDERED: MEASLES,MUMPS,RUBELLA 1 EA INJ SQ ONE (13:30)
[2019-02-22] MEDS ORDERED: WITCH HAZEL(TUCKS) 40 EA JAR TOP PRN (13:30)
[2019-02-22] MEDS ORDERED: TETANUS,DIPTH,PERTUSS P/F (BOOSTRIX) 0.5 ML VIAL IM ONE (13:30)
[2019-02-22] MEDS ORDERED: BENZOCAINE/MENTHOL (DERMOPLAST) 56 ML CAN TP PRN (13:30)
[2019-02-22] MEDS ORDERED: CATHETER FLUSH 10 ML SYR IV SCH (14:00)
[2019-02-22] MEDS: IBUPROFEN 600 MG (MOTRIN) TAB PO SCH ×2 (15:18→20:43)
--- NOTE | 2019-02-22 16:20 | NUR ---
FFu/1. lt rubra noted. no clots expressed. jocelyne-care offered. v-pad and panties in place. pt transferred to room 312 via w/c with this RN and family @ side. call light within reach.
--- NOTE | 2019-02-22 19:18 | NUR ---
report given to EULALIA Sheffield.
--- NOTE | 2019-02-22 20:00 | NUR ---
Pr up to void and perineal care education given, Pt assisted to bed and infant latched and suckling before this RN left room. Pt has no concerns at this time
[2019-02-22] MEDS ORDERED: DOCUSATE SODIUM 100 MG (COLACE) CAP PO SCH (21:00)
[2019-02-23] MEDS: IBUPROFEN 600 MG (MOTRIN) TAB PO SCH (03:00)
[2019-02-23 03:58] VITALS: BP 104/62
--- NOTE | 2019-02-23 03:59 | NUR ---
Pt sitting up in bed, to nursery for daily wt and vs obtained while RN removes IV.
[2019-02-23 06:52] LABS: BASOPHILS % (AUTO) 0 % (0-10); EOSINOPHILS # (AUTO) 0.1 10^3/uL (0.0-0.3); EOSINOPHILS % (AUTO) 1 % (0-10); HEMATOCRIT 32 % (35-52); HEMOGLOBIN 10.2 G/DL (11.5-16.0); LYMPHOCYTES # (AUTO) 1.2 X 10^3 (1.0-4.0); LYMPHOCYTES % (AUTO) 16 % (12-44); MEAN CORPUSCULAR HEMOGLOBIN 28 PG (25-34); MEAN CORPUSCULAR HGB CONC 32 G/DL (32-36); MEAN CORPUSCULAR VOLUME 88 FL (80-99); MEAN PLATELET VOLUME 11.8 FL (7.4-10.4); MONOCYTES # (AUTO) 0.4 X 10^3 (0.0-1.0); MONOCYTES % (AUTO) 5 % (0-12); NEUTROPHILS # (AUTO) 6.1 X 10^3 (1.8-7.8); NEUTROPHILS % (AUTO) 78 % (42-75); PLATELET COUNT 157 10^3/uL (130-400); RED CELL DISTRIBUTION WIDTH 13.7 % (10.0-14.5); WHITE BLOOD COUNT 7.8 10^3/uL (4.3-11.0)
--- NOTE | 2019-02-23 07:43 | Discharge Summary ---
Diagnosis/Chief Complaint Date of Admission Feb 22, 2019 at 05:46 Date of Discharge February 23, 2019 Discharge Date: Feb 23, 2019 Discharge Time: 15:00 Admission Diagnosis Admission Diagnosis 1. Intrauterine at 39 weeks gestation Discharge Diagnosis 1. Intrauterine at 39 weeks gestation Reason Hospital Visit 23-year-old 2 now term to L2 female who initially presented to labor and delivery during the morning of February 22, 2019 for induction of labor. Patient was noted be at 39 weeks 1 day gestation and underwent artificial rupture of membranes. Initially fluid was noted to be clear but later nurse had noted meconium staining. Her care was essentially unremarkable. Due date w as listed as February 28, 2019. Her GBS status was noted to be negative at 36 weeks gestation. Discharge Summary-OBS Procedures 1. Epidural per anesthesia 2. Spontaneous vaginal delivery 3. Repair of first-degree perineal laceration Discharge Physical Examination Allergies: Coded Allergies: No Known Drug Allergies (Unverified , 02/22/19) Vitals & I&Os Vital Signs Date Time Temp Pulse Resp B/P (MAP) Pulse Ox O2 Delivery O2 Flow Rate FiO2 02/23/19 03:58 97.9 56 18 104/62 (76) 100 Room Air General Appearance: No Acute Distress Respiratory: Clear to Auscultation Cardiovascular: Regular Rate Abdominal: Soft Skin: No Rashes Hospital Course Patient presented in the morning of February 22, 2019 for rupture of membranes. scalp electrode was placed in strip remained reactive throughout the course of labor. Epidural was placed per anesthesia. Patient required Pitocin augmentation. She eventually went to completion and was allowed to push. Patient delivered over a first-degree perineal laceration a term viable female. Delivery was accomplished on 2018 at 1244. Apgars were noted to be 9 at 1 minute and 9 at 5 minutes. Following delivery patient underwent routine care orders. She had no complications during the remainder of hospital stay. She tolerated regular diet . She was ambulatory without chest pain or shortness of breath. She had all questions answered in the morning of February 23, 2019 and was felt ready for dismissal during the afternoon of February 23, 2019. She will follow up in 6 weeks. Pending Labs Laboratory Tests 02/23/19 06:19: White Blood Count 7.8, Red Blood Count 3.59, Hemoglobin 10.2, Hematocrit 32, Mean Corpuscular Volume 88, Mean Corpuscular Hemoglobin 28, Mean Corpuscular Hemoglobin Concent 32, Red Cell Distribution Width 13.7, Platelet Count 157, Mean Platelet Volume 11.8, Neutrophils (%) (Auto) 78, Lymphocytes (%) (Auto) 16, Monocytes (%) (Auto) 5, Eosinophils (%) (Auto) 1, Basophils (%) (Auto) 0, Neutrophils # (Auto) 6.1, Lymphocytes # (Auto) 1.2, Monocytes # (Auto) 0.4, Eosinophils # (Auto) 0.1, Basophils # (Auto) 0.0 Discharge Instructions to patient/family Please see electronic discharge instructions given to patient. Discharge Medications Reviewed and agree with Discharge Medication list on patient's Discharge Instruction sheet Clinical Quality Measures DVT/VTE Risk/Contraindication: Risk Factor Score Per Nursin RFS Level Per Nursing on Admit: 1=Low/No VTE PPX ADRIANNA CUELLO MD Feb 23, 2019 07:43
--- NOTE | 2019-02-23 07:46 | Discharge Inst-Women's Service ---
Discharge Inst-Women's Serv Depart Medication/Instructions New, Converted or Re-Newed RX: Other (ibuprofen 200mg 2-3 every 6 hrs prn cramps or pain.) Consults/Follow Up Additional Follow Up: Yes (with Dr Cuello in 6 weeks.) Activity Activity: Activity as Tolerated Driving Instructions: No Driving for 1 Week Nothing Inside Vagina: No [place] (for 6 weeks.) Diet Discharge Diet: Regular Diet Return to The Hospital For: as below Symptoms to Report to : Bleeding Excessive, Fever Over 101 Degrees F, Vaginal Bleeding Increase, Vaginal Discharge Foul For Any Problems or Questions: Contact Your Physician ADRIANNA CUELLO MD Feb 23, 2019 07:46
--- NOTE | 2019-02-23 08:42 | Anesthesia-Regional Post-Op ---
Regional Patient Condition Mental Status: Alert, Oriented x3 Circulation: Same as Pre-Op Headache: Absent Sensation: Full Recovery Motor Block: Absent Post Op Complications Complications None Follow Up Care/Instructions Patient Instructions None needed. Anesthesia/Patient Condition Patient is doing well, no complaints, stable vital signs, no apparent adverse anesthesia problems. No complications reported per nursing. D/C home per [facility] [place] Criteria: Yes ELZA NARANJO CRNA Feb 23, 2019 08:42
[2019-02-23 08:55] VITALS: BP 103/62
--- NOTE | 2019-02-23 10:15 | NUR ---
Report from Shawn Shields RN
[2019-02-23 10:40] VITALS: BP 111/56
--- NOTE | 2019-02-23 14:20 | NUR ---
Discharge instructions explained to pt with copy provided to pt. Pt notified of need to schedule follow up and what to do for pain medication. Pt verbalizes understanding of instructions, signs to verify. Pt denies needs or concerns at this time.
--- NOTE | 2019-02-23 15:30 | NUR ---
Pt ambulates off unit accompanied by staff member and to private vehicle. All personal belongings previously taken to car by S.O. No s/s of distress noted.
== END 2019-02-23 15:30 | disposition home or self-care (01) | DRG 807 ==
LOC: LDRP 05:46
PROVIDERS: ADMIT Family Medicine; ATTEND Family Medicine
PROC: 10E0XZZ Delivery of Products of Conception, External Approach (ICD-10-PCS; principal; 2019-02-22)
PROC: 0HQ9XZZ Repair Perineum Skin, External Approach (ICD-10-PCS; 2019-02-22)
DX: O77.0 Labor and delivery complicated by meconium in amniotic fluid (principal); O70.0 First degree perineal laceration during delivery; Z3A.39 39 weeks gestation of pregnancy; Z37.0 Single live birth
CPT/HCPCS: 36415; 81000; 85025; 86850; 86900; 86901; 87088

== ENCOUNTER 2019-08-19 13:08 | Emergency (ER) | payer SELFPAY ==
[~2019-08-19] VITALS: Ht 165.1 cm; Wt 63.8 kg
[~2019-08-19 13:08] MED LIST changes: +PREN-53 PO
--- NOTE | 2019-08-19 13:37 | ED GU-Female ---
General Chief Complaint: HOSPITAL COORDINATOR Stated Complaint: POSS MISCARRIAGE/UNK GESTATION Nursing Triage Note: Pt presents to ED with concern of miscarriage. Pt reports waking at 0100 this morning and had vaginal bleeding when going to the bathroom. Pt reports then passing a "meaty clot with a white cord" at 0900. Pt reports cramping at this time, but feels bleeding is controlled. Pt reports currently taking control pills and not having any idea of possible . Nursing Sepsis Screen: No Definite Risk Source: patient Exam Limitations: no limitations History of Present Illness Date Seen by Provider: Aug 19, 2019 Time Seen by Provider: 13:20 Initial Comments Patient arrives by private conveyance from home with chief complaint that last night she passed blood clots unexpectedly as well as a small beefy red the soft tissue membranes that she suspected was a placenta with a small umbilical cord diameter insulin. She was having some cramping the day before but she suspected since her child had viral gastroenteritis and diarrhea that this was the same for her. She has not had any vomiting or diarrhea. She denies fever or dysuria. She did not know she was has no positive and she test. She usually follows with Dr. Cuello for her previous 2 pregnancies. She is a at roughly 7 weeks with a last menstrual somewhere around the end of May early June. She does not have insurance so she wanted to get on control to keep from getting as well as to regulate her previously irregular cycles. She went on the Internet and found a website that if she fell aforementioned get prescribed control pills. She does not know the name of them. She is not breast-feeding and is 6 months from her previous . She did not have any negative test since delivering her last child. She started the control approximately 3 weeks ago but she still has 2 days to go before she gets to the sugar pills per patient. Allergies and Home Medications Allergies Coded Allergies: No Known Drug Allergies (Unverified , 02/22/19) Home Medications [id number]/Iron Fumarate/FA/Dss 1 Each Tablet, 1 EACH PO DAILY, (Reported) Patient Home Medication List Home Medication List Reviewed: Yes Review of Systems Review of Systems Constitutional: No chills, No diaphoresis, No fever EENTM: No ear discharge, No ear pain Respiratory: No cough, No short of breath Cardiovascular: No chest pain, No edema Gastrointestinal: No abdominal pain, No constipation, No diarrhea, No heartburn Genitourinary: see HPI; denies dysuria Musculoskeletal: No back pain, No joint pain Past Jweeorp-Mthexe-Kuucmd Hx Patient Social History Alcohol Use: Occasionally Uses Recreational Drug Use: No 2nd Hand Smoke Exposure: No Recent Foreign Travel: No Contact w/Someone Who Travel: No Recent Infectious Disease Expo: No Recent Hopitalizations: No Immunizations Up To Date Tetanus Booster (TDap): Unknown Seasonal Allergies Seasonal Allergies: No Past Medical History Surgeries: No Respiratory: No Cardiac: No Neurological: No Genitourinary: No Gastrointestinal: No Musculoskeletal: Yes Scoliosis Endocrine: No HEENT: No Cancer: No Psychosocial: No Integumentary: No Blood Disorders: No Family Medical History Cardiovascular disease (father) Diabetes mellitus (mother grandmother) FH: lupus (grandmother aunt) Lup Physical Exam Vital Signs Vital Signs - First Documented 08/19/19 13:10 Temp 36.6 Pulse 88 Resp 11 B/P (MAP) 121/72 (88) Pulse Ox 97 O2 Delivery Room Air Capillary Refill : Less Than 3 Seconds Height, Weight, BMI Height: 5'5.00" Weight: 169lbs. 2.0oz. 76.667210xz; 23.00 BMI Method:Stated General Appearance: WD/WN, no apparent distress HEENT: pharynx normal Neck: full range of motion, normal inspection Cardiovascular: normal peripheral pulses, regular rate, rhythm Respiratory: no respiratory distress, no accessory muscle use Gastrointestinal: non tender, soft Neurologic/Psychiatric: alert, oriented x 3 Skin: normal color, warm/dry Progress/Results/Core Measures Suspected Sepsis Recent Fever Within 48 Hours: No Infection Criteria Present: None New/Unexplained Altered Menta: No Sepsis Screen: No Definite Risk SIRS Temperature: Pulse: 88 Respiratory Rate: 11 Laboratory Tests 08/19/19 13:36: White Blood Count 5.2 Blood Pressure 121 /72 Mean: 88 Laboratory Tests 08/19/19 13:36: Creatinine 0.85, Platelet Count 270, Total Bilirubin 0.7 Results/Orders Lab Results Laboratory Tests Test 08/19/19 13:33 08/19/19 13:36 Range/Units Urine Color YELLOW Urine Clarity CLEAR Urine pH 5.5 5-9 Urine Specific [place] >=1.030 1.016-1.022 Urine Protein NEGATIVE NEGATIVE Urine Glucose (UA) NEGATIVE NEGATIVE Urine Ketones NEGATIVE NEGATIVE Urine Nitrite NEGATIVE NEGATIVE Urine Bilirubin NEGATIVE NEGATIVE Urine Urobilinogen 0.2 < = 1.0 MG/DL Urine Leukocyte Esterase NEGATIVE NEGATIVE Urine RBC (Auto) 2+ H NEGATIVE Urine RBC 5-10 H /HPF Urine WBC RARE /HPF Urine Squamous Epithelial Cells 5-10 /HPF Urine Crystals NONE /LPF Urine Bacteria TRACE /HPF Urine Casts NONE /LPF Urine Mucus MODERATE H /LPF Urine Culture Indicated NO White Blood Count 5.2 4.3-11.0 10^3/uL Red Blood Count 4.63 4.35-5.85 10^6/uL Hemoglobin 13.4 11.5-16.0 G/DL Hematocrit 40 35-52 % Mean Corpuscular Volume 86 80-99 FL Mean Corpuscular Hemoglobin 29 25-34 PG Mean Corpuscular Hemoglobin Concent 34 32-36 G/DL Red Cell Distribution Width 13.5 10.0-14.5 % Platelet Count 270 130-400 10^3/uL Mean Platelet Volume 10.4 7.4-10.4 FL Neutrophils (%) (Auto) 70 42-75 % Lymphocytes (%) (Auto) 18 12-44 % Monocytes (%) (Auto) 11 0-12 % Eosinophils (%) (Auto) 1 0-10 % Basophils (%) (Auto) 0 0-10 % Neutrophils # (Auto) 3.6 1.8-7.8 X 10^3 Lymphocytes # (Auto) 0.9 L 1.0-4.0 X 10^3 Monocytes # (Auto) 0.6 0.0-1.0 X 10^3 Eosinophils # (Auto) 0.1 0.0-0.3 10^3/uL Basophils # (Auto) 0.0 0.0-0.1 10^3/uL Sodium Level 139 135-145 MMOL/L Potassium Level 4.2 3.6-5.0 MMOL/L Chloride Level 107 98-107 MMOL/L Carbon Dioxide Level 21 21-32 MMOL/L Anion Gap 11 5-14 MMOL/L Blood Urea Nitrogen 10 7-18 MG/DL Creatinine 0.85 0.60-1.30 MG/DL Estimat Glomerular Filtration Rate > 60 BUN/Creatinine Ratio 12 Glucose Level 91 70-105 MG/DL Calcium Level 8.8 8.5-10.1 MG/DL Corrected Calcium 8.4 L 8.5-10.1 MG/DL Total Bilirubin 0.7 0.1-1.0 MG/DL Aspartate Amino Transf (AST/SGOT) 51 H 5-34 U/L Alanine Aminotransferase (ALT/SGPT) 86 H 0-55 U/L Alkaline Phosphatase 75 40-136 U/L Total Protein 7.8 6.4-8.2 GM/DL Albumin 4.5 3.2-4.5 GM/DL My Orders Orders - JESSICA CLARK Cbc With Automated Diff (08/19/19 13:29) Comprehensive Metabolic Panel (08/19/19 13:29) Ua Culture If Indicated (08/19/19 13:29) Vital Signs/I&O 08/19/19 13:10 Temp 36.6 Pulse 88 Resp 11 B/P (MAP) 121/72 (88) Pulse Ox 97 O2 Delivery Room Air Capillary Refill : Less Than 3 Seconds Blood Pressure Mean: 88 Progress Note : Time: 13:39 Progress Note Plan to do a type and screen if she needs RhoGAM. Plan to get a bedside hCG which may still be positive if she recently miscarriaged yesterday. Labs to rule out anemia. She is not having any pain or discomfort so an ectopic is unlikely. Lab confirms that previous blood work demonstrates she is O+. Departure Impression Primary Impression: Miscarriage Disposition: 01 HOME, SELF-CARE Condition: Stable Departure-Patient Inst. Decision time for Depature: 14:14 Referrals: ADRIANNA CUELLO MD (PCP/Family) Primary Care Physician Patient Instructions: Miscarriage (DC), Dealing With Miscarriage Add. Discharge Instructions: Please review the handout on miscarriage. Expect over the next 3-5 days for the bleeding to stop. If you have severe pain not relieved by Tylenol or ibuprofen and heating pads or other worrisome symptoms such as fever then please return to the ER or your primary care doctor. After you have had another period and a negative [id number] test then you may restart your control. Pelvic rest until you been on control for at least 2 weeks. All discharge instructions reviewed with patient and/or family. Voiced understanding. JESSICA CLARK Aug 19, 2019 13:37
[2019-08-19 13:46] LABS: BASOPHILS % (AUTO) 0 % (0-10); EOSINOPHILS # (AUTO) 0.1 10^3/uL (0.0-0.3); EOSINOPHILS % (AUTO) 1 % (0-10); HEMATOCRIT 40 % (35-52); HEMOGLOBIN 13.4 G/DL (11.5-16.0); LYMPHOCYTES # (AUTO) 0.9 X 10^3 (1.0-4.0); LYMPHOCYTES % (AUTO) 18 % (12-44); MEAN CORPUSCULAR HEMOGLOBIN 29 PG (25-34); MEAN CORPUSCULAR HGB CONC 34 G/DL (32-36); MEAN CORPUSCULAR VOLUME 86 FL (80-99); MEAN PLATELET VOLUME 10.4 FL (7.4-10.4); MONOCYTES # (AUTO) 0.6 X 10^3 (0.0-1.0); MONOCYTES % (AUTO) 11 % (0-12); NEUTROPHILS # (AUTO) 3.6 X 10^3 (1.8-7.8); NEUTROPHILS % (AUTO) 70 % (42-75); PLATELET COUNT 270 10^3/uL (130-400); RED CELL DISTRIBUTION WIDTH 13.5 % (10.0-14.5); WHITE BLOOD COUNT 5.2 10^3/uL (4.3-11.0)
[2019-08-19 13:49] LABS: BILIRUBIN,URINE NEGATIVE (NEGATIVE); CLARITY,URINE CLEAR; COLOR,URINE YELLOW; GLUCOSE, URINE (UA) NEGATIVE (NEGATIVE); KETONES,URINE NEGATIVE (NEGATIVE); LEUKOCYTE ESTERASE ,URINE NEGATIVE (NEGATIVE); NITRITE,URINE NEGATIVE (NEGATIVE); PH,URINE 5.5 (5-9); PROTEIN,URINE NEGATIVE (NEGATIVE)
[2019-08-19 13:58] LABS: BACTERIA,URINE TRACE /HPF; WBC,URINE RARE /HPF
[2019-08-19 14:06] LABS: ALANINE AMINOTRANSFERASE 86 U/L (0-55); ALBUMIN 4.5 GM/DL (3.2-4.5); ALKALINE PHOSPHATASE 75 U/L (40-136); BILIRUBIN,TOTAL 0.7 MG/DL (0.1-1.0); BUN/CREATININE RATIO 12; CALCIUM 8.8 MG/DL (8.5-10.1); CARBON DIOXIDE 21 MMOL/L (21-32); CHLORIDE 107 MMOL/L (98-107); CREATININE SERUM 0.85 MG/DL (0.60-1.30); GFR ESTIMATED > 60; GLUCOSE 91 MG/DL (70-105); POTASSIUM 4.2 MMOL/L (3.6-5.0); SODIUM 139 MMOL/L (135-145); TOTAL PROTEIN 7.8 GM/DL (6.4-8.2)
[2019-08-19 14:23] VITALS: BP 112/72
== END 2019-08-19 14:23 | disposition home or self-care (01) ==
LOC: EDUNIT# 13:08 → ER 13:09
DX: O03.9 Complete or unspecified spontaneous abortion without complication (principal); Z82.49 Family history of ischemic heart disease and other diseases of the circulatory system
CPT/HCPCS: 36415; 80053; 81000; 84703; 85025